=== PATIENT | female | born 1945 | race Caucasian/White ===

== ENCOUNTER 2017-01-23 07:47 | Emergency (ER) | payer MEDICARE, OTHER ==
[2017-01-23] MEDS: ALBUTEROL/IPRATROPIUM 1 VIAL SOL INH ONE (08:07)
[2017-01-23] MEDS ORDERED: ALBUTEROL/IPRATROPIUM 1 VIAL SOL ONE (08:09)
[2017-01-23 08:19] VITALS: BP 152/85; PULSE 80; RESP 20; TEMP 96.4; O2SAT 95
== END 2017-01-23 09:08 | disposition home or self-care (01) | DRG 153 ==
LOC: ED 07:47
DX: J01.90 Acute sinusitis, unspecified (principal)
CPT/HCPCS: 99282; J7620

== ENCOUNTER 2018-07-09 09:12 | Emergency (ER) | payer MEDICARE, OTHER ==
[2018-07-09] MEDS ORDERED: ACETAMI/HYDROCO 325/10 TAB PO ONE (09:40)
[2018-07-09] MEDS ORDERED: APAP/HYDROCODONE 1 EACH TABLET ONE (09:44)
[2018-07-09] MEDS ORDERED: CYCLOBENZAPRINE 10 MG TAB PO ONE (09:46)
[2018-07-09] MEDS ORDERED: CYCLOBENZAPRINE 10 MG TAB ONE (09:48)
[2018-07-09] MEDS ORDERED: TRAMADOL HYDROCHLORIDE 50 MG TAB PO ONE (09:50)
[2018-07-09] MEDS ORDERED: TRAMADOL HYDROCHLORIDE 50 MG TAB ONE (09:51)
[2018-07-09 10:29] VITALS: BP 122/86; PULSE 99; RESP 20; TEMP 95.5; O2SAT 93
== END 2018-07-09 10:08 | disposition home or self-care (01) | DRG 552 ==
LOC: ED 09:12
DX: M54.41 Lumbago with sciatica, right side (principal)
CPT/HCPCS: 99282; 99283; A9270-GY

== ENCOUNTER 2018-08-22 13:25 | Inpatient (IN) | payer MEDICARE, OTHER ==
[2018-08-22] MEDS ORDERED: SODIUM CHLORIDE 0.9% 1000ML 1,000 ML IV ONE (13:36)
[2018-08-22 13:49] LABS: BASOPHILS % (AUTO) 1 % (0-3); EOSINOPHILS % (AUTO) 1 % (0-9); HEMATOCRIT 41 % (35-47); HEMOGLOBIN 13.1 gm/dl (12.0-15.5); LYMPHOCYTES % (AUTO) 7.7 % (10-50); MEAN CORPUSCULAR HEMOGLOBIN 30.4 pg (27.0-32.0); MEAN CORPUSCULAR HGB CONC 31.7 gm/dl (32.0-36.0); MEAN CORPUSCULAR VOLUME 96 fL (81-99); MONOCYTES % (AUTO) 7.5 % (0-12)
[2018-08-22 13:56] LABS: LACTIC ACID 2.7 mMol/L (0.0-2.0)
[2018-08-22 14:00] LABS: ABG PH 7.41 (7.35-7.45)
[2018-08-22 14:00] LABS: CALCIUM 8.9 mg/dl (8.5-10.1); CARBON DIOXIDE 26.9 mEq/L (21-32); CREATININE 1.69 mg/dl (0.60-1.00); POTASSIUM 4.8 mMol/L (3.5-5.1)
[2018-08-22 14:02] LABS: TROP I 0.039 ng/ml (0.000-0.056)
[2018-08-22] MEDS ORDERED: LEVOFLOXACIN 500 MG TAB PO ONE (14:39)
[2018-08-22] MEDS ORDERED: LEVOFLOXACIN 500 MG TAB ONE (14:48)
[2018-08-22] MEDS ORDERED: HEPARIN SODIUM 5000 U/ML SOL ONE (14:52)
[2018-08-22] MEDS: HEPARIN SODIUM 5000 U/ML 25,000 U in DEXTROSE 250 ML 250 ML IV PRN ×2 (15:06→16:48)
[2018-08-22] MEDS ORDERED: ALBUTEROL NEB SOL 2.5MG/3ML 1 VIAL SOL NEB PRN (16:15)
[2018-08-22] MEDS: ALBUTEROL/IPRATROPIUM 1 VIAL SOL INH SCH ×2 (16:47→21:37)
[2018-08-22] MEDS: SODIUM CHLORIDE 0.9% 1000ML 1,000 ML IV SCH (16:48)
[2018-08-22] MEDS: NOVOLOG FLEXPEN SC SCH (17:37)
[2018-08-22] MEDS ORDERED: NOVOLOG FLEXPEN SC SCH (18:00)
[2018-08-22] MEDS ORDERED: NITROGLYCERIN 0.4 MG TAB SL PRN (18:32)
[2018-08-22] MEDS ORDERED: NORTRIPTYLINE HCL 25 MG PO SCH (21:00)
[2018-08-22] MEDS: LEVEMIR PEN SC SCH (21:34)
[2018-08-22] MEDS: Non-Formulary Medication MISC (Fluticasone/Salmeterol 250/50 1 PUFF) INH SCH (22:50)
[2018-08-22] MEDS: PRAMIPEXOLE DIHYDROCHLORIDE 1.5 MG PO SCH (22:50)
[2018-08-23] MEDS ORDERED: ACETAMINOPHEN 325 MG PO PRN (00:40)
[2018-08-23] MEDS: ALBUTEROL/IPRATROPIUM 1 VIAL SOL INH SCH ×4 (04:04→21:16)
[2018-08-23] MEDS: SODIUM CHLORIDE 0.9% 1000ML 1,000 ML IV SCH ×2 (05:20→18:36)
[2018-08-23] MEDS ORDERED: DULOXETINE HYDROCHLORIDE 20 MG PO SCH (07:00)
[2018-08-23 07:03] LABS: CALCIUM 8.4 mg/dl (8.5-10.1); CARBON DIOXIDE 27.3 mEq/L (21-32); CREATININE 1.14 mg/dl (0.60-1.00); POTASSIUM 3.8 mMol/L (3.5-5.1)
[2018-08-23 07:30] LABS: BASOPHILS % (AUTO) 1 % (0-3); EOSINOPHILS % (AUTO) 3 % (0-9); HEMATOCRIT 42 % (35-47); HEMOGLOBIN 13.1 gm/dl (12.0-15.5); LYMPHOCYTES % (AUTO) 8.9 % (10-50); MEAN CORPUSCULAR HEMOGLOBIN 30.7 pg (27.0-32.0); MEAN CORPUSCULAR HGB CONC 31.5 gm/dl (32.0-36.0); MEAN CORPUSCULAR VOLUME 97 fL (81-99); MONOCYTES % (AUTO) 8.7 % (0-12); NEUTROPHILS % (AUTO) 78.5 % (37-80)
[2018-08-23] MEDS ORDERED: METFORMIN HYDROCHLORIDE 500 MG TAB PO SCH (08:00)
[2018-08-23] MEDS: NOVOLOG FLEXPEN SC SCH ×2 (08:52→17:48)
[2018-08-23] MEDS: LEVEMIR PEN SC SCH ×2 (08:53→21:09)
[2018-08-23] MEDS: CLOPIDOGREL 75 MG TAB PO SCH ×2 (08:54→08:58)
[2018-08-23] MEDS: FUROSEMIDE 20 MG TAB PO SCH (08:54)
[2018-08-23] MEDS: GABAPENTIN 300 MG CAP PO SCH (08:55)
[2018-08-23] MEDS: LOSARTAN POTASSIUM 50 MG TAB PO SCH (10:56)
[2018-08-23] MEDS: ENOXAPARIN 40 MG SOL SC SCH (10:56)
[2018-08-23] MEDS: BACLOFEN 10 MG TAB PO SCH (10:57)
[2018-08-23] MEDS: LEVOFLOXACIN 500 MG TAB PO SCH (10:57)
[2018-08-23] MEDS: FLUTICASONE/SALMETEROL 250/50 1 PUFF DSK INH SCH ×2 (11:00→21:11)
[2018-08-23] MEDS: Non-Formulary Medication MISC (Fluticasone/Salmeterol 250/50 1 PUFF) INH SCH (11:39)
[2018-08-23] MEDS: METOPROLOL SUCCINATE 50 MG TER PO SCH (11:56)
[2018-08-23] MEDS ORDERED: NOVOLOG FLEXPEN SC SCH (12:00)
[2018-08-23] MEDS ORDERED: NORTRIPTYLINE HCL 25 MG CAP PO SCH (21:00)
[2018-08-23] MEDS: PRAMIPEXOLE DIHYDROCHLORIDE 1.5 MG PO SCH (21:11)
[2018-08-23] MEDS: TIZANIDINE 4 MG PO SCH (21:15)
[2018-08-24] MEDS: ALBUTEROL/IPRATROPIUM 1 VIAL SOL INH SCH ×2 (04:37→10:19)
[2018-08-24 07:37] LABS: CALCIUM 8.4 mg/dl (8.5-10.1); CARBON DIOXIDE 27.4 mEq/L (21-32); CREATININE 1.22 mg/dl (0.60-1.00); POTASSIUM 3.6 mMol/L (3.5-5.1)
[2018-08-24 07:42] VITALS: BP 156/90; PULSE 93; RESP 18; TEMP 98; O2SAT 92
[2018-08-24 07:43] LABS: BASOPHILS % (AUTO) 1 % (0-3); EOSINOPHILS % (AUTO) 4 % (0-9); HEMATOCRIT 40 % (35-47); HEMOGLOBIN 12.4 gm/dl (12.0-15.5); LYMPHOCYTES % (AUTO) 9.7 % (10-50); MEAN CORPUSCULAR HEMOGLOBIN 29.9 pg (27.0-32.0); MEAN CORPUSCULAR HGB CONC 30.6 gm/dl (32.0-36.0); MEAN CORPUSCULAR VOLUME 98 fL (81-99); MONOCYTES % (AUTO) 8.8 % (0-12); NEUTROPHILS % (AUTO) 75.7 % (37-80)
[2018-08-24] MEDS: LEVEMIR PEN SC SCH (08:02)
[2018-08-24] MEDS: NOVOLOG FLEXPEN SC SCH (08:04)
[2018-08-24] MEDS ORDERED: DULOXETINE HCL 20 MG ECC PO SCH (09:00)
[2018-08-24] MEDS ORDERED: LEVOFLOXACIN 500 MG TAB PO SCH (09:00)
[2018-08-24] MEDS ORDERED: METOPROLOL SUCCINATE 50 MG ER TAB PO SCH (09:00)
[2018-08-24] MEDS: GABAPENTIN 300 MG CAP PO SCH (09:18)
[2018-08-24] MEDS: FUROSEMIDE 20 MG TAB PO SCH (09:18)
[2018-08-24] MEDS: CLOPIDOGREL 75 MG TAB PO SCH (09:18)
[2018-08-24] MEDS: BACLOFEN 10 MG TAB PO SCH (09:19)
[2018-08-24] MEDS: LEVOFLOXACIN 500 MG TAB PO SCH (09:19)
[2018-08-24] MEDS: METOPROLOL SUCCINATE 50 MG TER PO SCH (09:20)
[2018-08-24] MEDS: LOSARTAN POTASSIUM 50 MG TAB PO SCH (09:20)
[2018-08-24] MEDS: TIZANIDINE 4 MG PO SCH (09:21)
[2018-08-24] MEDS: FLUTICASONE/SALMETEROL 250/50 1 PUFF DSK INH SCH (09:21)
[2018-08-24] MEDS: SODIUM CHLORIDE 0.9% 1000ML 1,000 ML IV SCH (10:19)
[2018-08-24] MEDS: ENOXAPARIN 40 MG SOL SC SCH (10:20)
== END 2018-08-24 10:05 | disposition home or self-care (01) | DRG 194 ==
LOC: ED 13:25 → ACUTE CARE 15:15
PROVIDERS: ADMIT Family Medicine; ATTEND Family Medicine
DX: J18.9 Pneumonia, unspecified organism (principal); J98.11 Atelectasis; R05 Cough; N17.9 Acute kidney failure, unspecified; R06.02 Shortness of breath; I27.20 Pulmonary hypertension, unspecified; R09.02 Hypoxemia; E11.9 Type 2 diabetes mellitus without complications
CPT/HCPCS: 36415; 36600; 71045; 71275; 80048; 82803; 82962; 84484; 85025; 85378; 85730; 93005; 94150; 94640; 96365; 96366; 99223; 99284; J1644; J1650; J1815; J7613; Q9967; A9270-GY

== ENCOUNTER 2018-08-24 10:58 | Emergency (ER) | payer MEDICARE, OTHER ==
[2018-08-24] MEDS ORDERED: SODIUM CHLORIDE 0.9% 1000 ML SOL IV SCH (11:20)
[2018-08-24] MEDS ORDERED: ETOMIDATE 2 MG/ML SOL IV ONE ×2 (11:24→11:53)
[2018-08-24] MEDS ORDERED: SUCCINYLCHOLINE CHLORIDE 20 MG/ML SOL IV ONE (11:24)
[2018-08-24] MEDS ORDERED: SODIUM CHLORIDE 0.9% FLUSH 10 ML SOL IV PRN (11:26)
[2018-08-24] MEDS ORDERED: MIDAZOLAM 2 MG/2 ML SOL ONE ×2 (11:32→11:53)
[2018-08-24] MEDS ORDERED: ROCURONIUM BROMIDE 10 MG/ML SOL IV ONE ×3 (11:32→12:00)
[2018-08-24 11:33] LABS: ABG PH 7.2 (7.35-7.45)
[2018-08-24] MEDS ORDERED: MIDAZOLAM 2 MG/2 ML SOL IV ONE ×2 (11:33→12:15)
[2018-08-24 11:36] LABS: APPEARANCE,URINE Slightly Cloudy; BILIRUBIN,URINE NEGATIVE (NEGATIVE); COLOR,URINE Yellow; GLUCOSE, URINE (UA) NEGATIVE (NEGATIVE); KETONES,URINE NEGATIVE (NEGATIVE); LEUKOCYTE ESTERASE ,URINE NEGATIVE (NEGATIVE); NITRATE,URINE NEGATIVE (NEGATIVE); OCCULT BLOOD,URINE TRACE INTACT (NEG-TRACE)
[2018-08-24 11:36] LABS: HEMATOCRIT 48 % (35-47); HEMOGLOBIN 14.2 gm/dl (12.0-15.5); LYMPHOCYTES % (AUTO) 13.4 % (10-50); MEAN CORPUSCULAR HEMOGLOBIN 29.4 pg (27.0-32.0); MEAN CORPUSCULAR HGB CONC 29.4 gm/dl (32.0-36.0); MEAN CORPUSCULAR VOLUME 100 fL (81-99); MONOCYTES % (AUTO) 7.1 % (0-12); NEUTROPHILS % (AUTO) 76.2 % (37-80)
[2018-08-24 11:37] LABS: BASOPHILS % (AUTO) 1 % (0-3); EOSINOPHILS % (AUTO) 3 % (0-9)
[2018-08-24] MEDS ORDERED: NOREPINEPHRINE BITARTRATE 4 MG/4 ML SOL IV ONE (11:46)
[2018-08-24 11:47] LABS: EPITHELIAL CELLS 0-2 (SQUAMOUS); RBC,URINE 0-5 (0-3AV/HPF); WBC,URINE 0-1 (0-5AV/HPF)
[2018-08-24 11:48] LABS: BACTERIA 2+ (< 1+); CRYSTALS 1+ AMORPHOUS URATES (0-3 AVE/HPF)
[2018-08-24 11:51] LABS: CALCIUM 8.9 mg/dl (8.5-10.1); CARBON DIOXIDE 24.8 mEq/L (21-32); CREATININE 1.55 mg/dl (0.60-1.00); POTASSIUM 4.1 mMol/L (3.5-5.1)
[2018-08-24] MEDS ORDERED: SODIUM CHLORIDE 0.9% 1000ML 1,000 ML IV ONE (12:14)
[2018-08-24 12:24] VITALS: TEMP 97.2
[2018-08-24 13:20] VITALS: BP 91/55; PULSE 96; RESP 95; O2SAT 95
== END 2018-08-24 12:53 | disposition short-term general hospital (02) | DRG 298 ==
LOC: ED 10:58
DX: I46.9 Cardiac arrest, cause unspecified (principal); E11.9 Type 2 diabetes mellitus without complications
CPT/HCPCS: 36415; 36600; 71045; 80048; 81001; 82803; 84484; 85025; 87088; 93005; 96365; 96366; 96374; 96375; 99291; J0330; J2250; A9270-GY; J3490

== ENCOUNTER 2018-09-29 17:38 | Observation (INO) | payer MEDICARE, OTHER ==
[2018-09-29 18:53] LABS: BASOPHILS % (AUTO) 1 % (0-3); EOSINOPHILS % (AUTO) 3 % (0-9); HEMATOCRIT 33 % (35-47); HEMOGLOBIN 10.2 gm/dl (12.0-15.5); MEAN CORPUSCULAR HEMOGLOBIN 29.4 pg (27.0-32.0); MEAN CORPUSCULAR HGB CONC 30.6 gm/dl (32.0-36.0); MEAN CORPUSCULAR VOLUME 96 fL (81-99); MONOCYTES % (AUTO) 7.7 % (0-12); NEUTROPHILS % (AUTO) 70.5 % (37-80)
[2018-09-29] MEDS ORDERED: PATIENT EDUCATION 1 MISC PRN (19:02)
[2018-09-29 19:05] LABS: ALBUMIN 2.9 gm/dl (3.4-5.0); BILIRUBIN,TOTAL 0.4 mg/dl (0.2-1.0); CALCIUM 8.9 mg/dl (8.5-10.1); CARBON DIOXIDE 27.2 mEq/L (21-32); CREATININE 1.03 mg/dl (0.60-1.00); POTASSIUM 4.6 mMol/L (3.5-5.1); TOTAL PROTEIN 6.7 gm/dl (6.4-8.2)
[2018-09-29] MEDS: SODIUM CHLORIDE 0.9% FLUSH 10 ML SOL IV SCH (19:30)
[2018-09-29] MEDS: ENOXAPARIN 40 MG SOL SC SCH (20:02)
[2018-09-29] MEDS ORDERED: ALBUTEROL HFA 60 PUFF/INHALER INH PRN (20:53)
[2018-09-29] MEDS ORDERED: ALUMINUM/MAGNESIUM 30 ML SUS PO PRN (20:53)
[2018-09-29] MEDS ORDERED: CHLORHEXIDINE GLUCONATE PO PRN (20:53)
[2018-09-29] MEDS ORDERED: SENNOSIDES A AND B 8.6 MG TAB PO PRN (20:53)
[2018-09-29] MEDS ORDERED: BACLOFEN 10 MG PO SCH (21:00)
[2018-09-29] MEDS ORDERED: NORTRIPTYLINE HCL 25 MG PO SCH (21:00)
[2018-09-29] MEDS: GABAPENTIN 300 MG CAP PO SCH (22:23)
[2018-09-29] MEDS: METOPROLOL TARTRATE 25 MG TAB PO SCH (22:23)
[2018-09-29] MEDS: ALBUTEROL NEB SOL 2.5MG/3ML 1 VIAL SOL NEB SCH (22:26)
[2018-09-29] MEDS: SILDENAFIL CITRATE 20 MG PO SCH (22:27)
[2018-09-29] MEDS: PRAMIPEXOLE DIHYDROCHLORIDE 1.5 MG PO SCH (22:30)
[2018-09-29] MEDS: SALMETEROL INH SCH (22:32)
[2018-09-29] MEDS: FLUTICASONE INH SCH (22:32)
[2018-09-29] MEDS: INSULIN GLARGINE, RECOMBINAN 100 U/ML SOL SC SCH (22:34)
[2018-09-29] MEDS: TRAMADOL HYDROCHLORIDE 50 MG TAB PO PRN (23:06)
[2018-09-30] MEDS: ACETAMINOPHEN 325 MG PO PRN ×2 (01:58→18:18)
[2018-09-30] MEDS: SODIUM CHLORIDE 0.9% FLUSH 10 ML SOL IV SCH ×4 (02:00→23:12)
[2018-09-30] MEDS: TRAMADOL HYDROCHLORIDE 50 MG TAB PO PRN (05:57)
[2018-09-30] MEDS: DULOXETINE HCL 30 MG CAPSULE.DR PO SCH (06:00)
[2018-09-30] MEDS ORDERED: TRAMADOL HYDROCHLORIDE 50 MG TAB PO PRN (08:01)
[2018-09-30] MEDS: NOVOLOG FLEXPEN SC SCH ×3 (08:57→17:31)
[2018-09-30] MEDS: ENOXAPARIN 40 MG SOL SC SCH (08:58)
[2018-09-30] MEDS ORDERED: LIDODERM 5% TOP SCH (09:00)
[2018-09-30] MEDS ORDERED: MAGNESIUM 400 MG PO SCH (09:00)
[2018-09-30] MEDS ORDERED: OMEPRAZOLE 20 MG CAPSULE PO SCH (09:00)
[2018-09-30] MEDS: GABAPENTIN 300 MG CAP PO SCH ×2 (09:02→20:40)
[2018-09-30] MEDS: ASPIRIN EC 81 MG PO SCH (09:03)
[2018-09-30] MEDS: FUROSEMIDE 20 MG TAB PO SCH (09:03)
[2018-09-30] MEDS: METOPROLOL TARTRATE 25 MG TAB PO SCH ×2 (09:03→20:41)
[2018-09-30] MEDS: MAGNESIUM OXIDE 400 MG TAB PO SCH (09:03)
[2018-09-30] MEDS: LOSARTAN POTASSIUM 50 MG TAB PO SCH (09:03)
[2018-09-30] MEDS: POTASSIUM CHLORIDE 10 MEQ TER PO SCH (09:03)
[2018-09-30] MEDS: PANTOPRAZOLE SODIUM 40 MG ECT PO SCH (09:03)
[2018-09-30] MEDS: ALBUTEROL NEB SOL 2.5MG/3ML 1 VIAL SOL NEB SCH ×4 (09:07→20:43)
[2018-09-30] MEDS: SILDENAFIL CITRATE 20 MG PO SCH ×3 (09:07→20:48)
[2018-09-30] MEDS: FLUTICASONE INH SCH (09:11)
[2018-09-30] MEDS: SALMETEROL INH SCH (09:11)
[2018-09-30] MEDS ORDERED: GABAPENTIN 300 MG CAP PO SCH (14:00)
[2018-09-30] MEDS: FLUTICASONE/SALMETEROL 250/50 1 PUFF DSK INH SCH (20:45)
[2018-09-30] MEDS: INSULIN GLARGINE, RECOMBINAN 100 U/ML SOL SC SCH (20:46)
[2018-09-30] MEDS: PRAMIPEXOLE DIHYDROCHLORIDE 1.5 MG PO SCH (20:48)
[2018-09-30] MEDS ORDERED: BACLOFEN 10 MG TAB PO SCH (21:00)
[2018-09-30] MEDS ORDERED: NORTRIPTYLINE HCL 25 MG CAP PO SCH (21:00)
[2018-10-01] MEDS: SODIUM CHLORIDE 0.9% FLUSH 10 ML SOL IV SCH ×2 (01:04→05:26)
[2018-10-01] MEDS: ACETAMINOPHEN 325 MG PO PRN (03:04)
[2018-10-01 03:39] VITALS: RESP 22
[2018-10-01] MEDS ORDERED: KETOROLAC TROMETHAMINE 30 MG/ML SOL IV ONE (05:00)
[2018-10-01] MEDS: DULOXETINE HCL 30 MG CAPSULE.DR PO SCH (06:43)
[2018-10-01 07:31] LABS: BASOPHILS % (AUTO) 2 % (0-3); EOSINOPHILS % (AUTO) 8 % (0-9); HEMATOCRIT 34 % (35-47); HEMOGLOBIN 10.2 gm/dl (12.0-15.5); LYMPHOCYTES % (AUTO) 33.2 % (10-50); MEAN CORPUSCULAR HEMOGLOBIN 29.3 pg (27.0-32.0); MEAN CORPUSCULAR HGB CONC 30.3 gm/dl (32.0-36.0); MEAN CORPUSCULAR VOLUME 97 fL (81-99); MONOCYTES % (AUTO) 8.1 % (0-12); NEUTROPHILS % (AUTO) 49.3 % (37-80)
[2018-10-01 07:44] LABS: CALCIUM 8.8 mg/dl (8.5-10.1); CREATININE 1.15 mg/dl (0.60-1.00)
[2018-10-01 08:28] VITALS: BP 152/76; PULSE 90; TEMP 97.8; O2SAT 92
[2018-10-01] MEDS: NOVOLOG FLEXPEN SC SCH (08:35)
[2018-10-01] MEDS: GABAPENTIN 300 MG CAP PO SCH (08:37)
[2018-10-01] MEDS: MAGNESIUM OXIDE 400 MG TAB PO SCH (08:37)
[2018-10-01] MEDS: PANTOPRAZOLE SODIUM 40 MG ECT PO SCH (08:37)
[2018-10-01] MEDS: FUROSEMIDE 20 MG TAB PO SCH (08:37)
[2018-10-01] MEDS: POTASSIUM CHLORIDE 10 MEQ TER PO SCH (08:37)
[2018-10-01] MEDS: METOPROLOL TARTRATE 25 MG TAB PO SCH (08:37)
[2018-10-01] MEDS: SILDENAFIL CITRATE 20 MG PO SCH (08:38)
[2018-10-01] MEDS: LOSARTAN POTASSIUM 50 MG TAB PO SCH (08:38)
[2018-10-01] MEDS: ENOXAPARIN 40 MG SOL SC SCH (08:38)
[2018-10-01] MEDS: ASPIRIN EC 81 MG PO SCH (08:38)
[2018-10-01] MEDS: FLUTICASONE/SALMETEROL 250/50 1 PUFF DSK INH SCH (08:41)
[2018-10-01] MEDS: ALBUTEROL NEB SOL 2.5MG/3ML 1 VIAL SOL NEB SCH (08:45)
[2018-10-01] MEDS ORDERED: LIDOCAINE 5% PATCH 1 PATCH TDM TOP SCH (09:00)
== END 2018-10-01 08:55 | DRG 946 ==
LOC: ACUTE CARE 17:49
PROVIDERS: ADMIT Family Medicine; ATTEND Family Medicine
PROC: F01ZBZZ Bed Mobility Assessment (ICD-10-PCS; principal; 2018-09-30)
PROC: F01ZCFZ Transfer Assessment using Assistive, Adaptive, Supportive or Protective Equipment (ICD-10-PCS; 2018-09-30)
DX: R53.1 Weakness (principal); R09.02 Hypoxemia; I25.10 Atherosclerotic heart disease of native coronary artery without angina pectoris; E11.9 Type 2 diabetes mellitus without complications; R06.02 Shortness of breath; Z79.4 Long term (current) use of insulin
CPT/HCPCS: 36415; 72120; 73502; 80048; 80053; 82962; 83880; 85025; 94640; J1650; J1817; J1885; J7613; A9270-GY; J1815